=== PATIENT | female | born 1980 | race Caucasian/White ===

== ENCOUNTER 2019-01-16 16:07 | Emergency (ER) | payer OTHER, MEDICAID ==
[~2019-01-16] VITALS: Ht 154.9 cm; Wt 140.6 kg
[~2019-01-16 16:07] MED LIST: ANAPROX DS550 MG PO; CIPRO500 MG PO; IBUPROFEN 200200 M1 PO; MULTI-VITAMIN1 EAC5 PO; NORCO 5-325 TA1 EACH PO; PREDNISONE50 MG PO; PROAIR HFA8.5 GM INH; ROBAXIN500 MG PO; ZOFRAN ODT4 MG PO
[2019-01-16] MEDS ORDERED: ZESTORETIC 20-1 EAC1 PO (16:35)
[2019-01-16] MEDS ORDERED: GABAPENTIN 100100 MG PO (16:36)
[2019-01-16] MEDS ORDERED: BUSPIRONE HCL10 MG PO (16:36)
[2019-01-16] MEDS ORDERED: TRAZODONE HCL100 MG PO (16:36)
[2019-01-16] MEDS ORDERED: CENTRUM SILVER1 EAC4 PO (16:36)
[2019-01-16 16:47] LABS: URINE BILIRUBIN NEGATIVE (Negative); URINE BLOOD NEGATIVE (Negative); URINE CLARITY CLEAR; URINE COLOR YELLOW; URINE GLUCOSE-RANDOM NEGATIVE (Negative); URINE KETONES NEGATIVE (Negative); URINE LEUKOCYTES-REFLEX NEGATIVE (Negative); URINE NITRITE-REFLEX NEGATIVE (Negative); URINE PROTEIN NEGATIVE (Negative); URINE SPECIFIC GRAVITY >= 1.030 (1.005-1.030); URINE UROBILINOGEN 0.2 E.U./dl (0.2-1.0)
[2019-01-16 16:54] LABS: AMP/METHAMP Negative (Negative); BARBITURATES Negative (Negative); BENZODIAZEPINES Negative (Negative); COCAINE Negative (Negative); METHADONE Negative (Negative); OPIATES Negative (Negative); PCP Negative (Negative); THC Negative (Negative)
[2019-01-16 17:54] LABS: ABSOLUTE BASOPHILS 0.1 thou/uL (0.0-0.2); ABSOLUTE EOSINOPHILS 0.1 thou/uL (0.0-0.7); ABSOLUTE LYMPHOCYTES 2.4 thou/uL (0.8-5.3); ABSOLUTE MONOCYTES 0.3 thou/uL (0.0-1.2); ABSOLUTE NEUTROPHILS 4.6 thou/uL (1.6-8.1); BASOPHILS 1.4 %; EOSINOPHILS 1.7 %; HEMATOCRIT 41.1 % (37.0-47.0); HEMOGLOBIN 13.6 gm/dL (12.0-15.0); LYMPHOCYTES 31.2 %; MCH 27.9 pg (26.0-34.0); MCHC 33.1 g/dL (28.0-37.0); MCV 84.2 fL (80.0-100.0); MONOCYTES 4.5 %; MPV 8.1 fl. (7.2-11.1); NUCLEATED RBCS 0 /100WBC; PLATELET COUNT* 276 thou/uL (150-400); POLYS 61.2 %; RBC 4.89 mil/uL (4.20-5.00); RDW-CV 13.8 % (10.5-14.5); WBC 7.6 thou/uL (4.0-11.0)
[2019-01-16 18:18] LABS: ANION GAP 7 mmol/L (7-16); BUN 16 mg/dL (7-18); CALCIUM 9.1 mg/dL (8.5-10.1); CHLORIDE 99 mmol/L (98-107); CO2 32 mmol/L (21-32); CREATININE 1.1 mg/dL (0.6-1.3); GLUCOSE 161 mg/dL (70-99); POTASSIUM 3.7 mmol/L (3.5-5.1); SODIUM 138 mmol/L (136-145)
[2019-01-16 18:32] LABS: ALBUMIN 3.5 g/dL (3.4-5.0); ALKALINE PHOSPHATASE 81 U/L (46-116); SGOT 16 U/L (15-37); SGPT 26 U/L (30-65); TOTAL BILIRUBIN 0.2 mg/dL (<0.1-1.0); TOTAL PROTEIN 7.2 g/dL (6.4-8.2); TROPONIN-I LEVEL <0.06 ng/mL (<0.06)
[2019-01-16] MEDS ORDERED: BUTALB-APAP-CA1 EACH PO (18:36)
[2019-01-16] MEDS ORDERED: ONDANSETRON HCL4 M2 PO (18:39)
[2019-01-16 18:43] VITALS: BP 137/86
--- NOTE | 2019-01-17 10:23 | EKG ---
[place] [address] ELECTROCARDIOGRAM REPORT Name: EMILIANO CLIFFORD [facility] [id number] Admission: 01/16/19 Attend Phys: Discharge: 01/16/19 Date of : 78 Report #: [id number] THIS REPORT FOR: //name// [facility] ED Test Date: 2019-01-16 Test Time: 16:50:42 Pat Name: EMILIANO CLIFFORD Department: Room: Gender: F [employer]: LEO : 1980 Requested By: Ramsey Kelly Order Number: [id number] MD: Kurtis Thurman Measurements Intervals [place] Rate: 94 P: 22 [place]: 148 QRS: 22 QRSD: 95 T: 5 QT: 361 QTc: 452 Interpretive Statements Sinus rhythm RSR' in V1 or V2, probably normal variant Baseline wander in lead(s) V2 No previous ECG available for comparison Electronically Signed On 01-17-2019 10:23:33 CDT by Kurtis Thurman [email or web address] <ELECTRONICALLY SIGNED> By: Kurtis Thurman MD, [facility] 01/17/19 1023 49 49 Kurtis Thurman MD, FACC /EPI
== END 2019-01-16 18:44 | disposition home or self-care (01) ==
LOC: M.ERS 16:07
PROVIDERS: Physician Assistant
DX: R51 Headache (principal); I10 Essential (primary) hypertension; Z98.890 Other specified postprocedural states; Z90.49 Acquired absence of other specified parts of digestive tract; Z98.51 Tubal ligation status; Z88.2 Allergy status to sulfonamides; Z88.5 Allergy status to narcotic agent; Z88.6 Allergy status to analgesic agent; Z79.899 Other long term (current) drug therapy